=== PATIENT | male | born 1930 | race Caucasian/White ===

== ENCOUNTER 2018-07-05 07:00 | Day surgery (SDC) | payer OTHER ==
[~2018-07-05] VITALS: Ht 170.2 cm; Wt 61.2 kg
[~2018-07-05 07:00] MED LIST: CARTIA XT240 MG PO; COZAAR100 MG PO
[2018-07-06] MEDS ORDERED: INTESTINEX680 M1 PO (14:56)
== END 2018-07-06 08:00 | disposition home or self-care (01) ==
LOC: O/R 07:00 → CIR.AMB 07:00 → SURH 07:00 → EDSTATUS 12:15 → O/R 15:24 → SURG 15:24 → CIR.AMB 07-06 08:00 → SURG 07-06 16:02
DX: D12.8 Benign neoplasm of rectum (principal)